=== PATIENT | female | born 1990 | race African-American/Black ===

== ENCOUNTER 2016-12-08 11:05 | Emergency (ER) | payer OTHER | END 2016-12-08 12:32 | disposition left against medical advice (07) | LOC: M ED 11:05 | DX: K08.9 Disorder of teeth and supporting structures, unspecified (principal); F41.9 Anxiety disorder, unspecified; E28.2 Polycystic ovarian syndrome; Z79.899 Other long term (current) drug therapy; Z88.6 Allergy status to analgesic agent; Z53.21 Procedure and treatment not carried out due to patient leaving prior to being seen by health care provider ==

== ENCOUNTER 2017-06-29 13:11 | Emergency (ER) | payer OTHER ==
[~2017-06-29] VITALS: Ht 170.2 cm; Wt 95.4 kg
[2017-06-29] MEDS ORDERED: FERR325T3 PO (13:17)
[2017-06-29] MEDS ORDERED: CELE20TA PO (13:17)
[2017-06-29] MEDS ORDERED: PERCOCET 5MG/325MG TAB PO ONE (15:15)
[2017-06-29 15:29] LABS: BASO % 0.5 % (0.0-1.0); EOS # 0.2 K/mm3 (0.0-0.50); EOS % 2.6 % (0.0-3.0); LARGE UNSTAINED CELL # 0.1 K/mm3 (0.0-0.4); LARGE UNSTAINED CELL % 1.6 % (0.0-4.0); LYMPH # 2.3 K/mm3 (1.5-6.5); LYMPH % 36.4 % (24.0-44.0); MEAN CORPUSCULAR HEMOGLOBIN 24.9 pg (27.0-33.0); MEAN CORPUSCULAR HGB CONC 30.4 g/dl (32.0-36.5); MEAN CORPUSCULAR VOLUME 81.9 fl (80.0-96.0); MONO # 0.2 K/mm3 (0.0-0.8); MONO % 3.9 % (0.0-5.0); NEUTROPHILS # 3.4 K/mm3 (1.8-7.7); NEUTROPHILS % 55.1 % (36.0-66.0); PLATELET COUNT, AUTOMATED 267 k/mm3 (150-450); RED CELL DISTRIBUTION WIDTH 12.5 % (11.5-14.5); WHITE BLOOD COUNT 6.1 K/mm3 (4.0-10.0)
[2017-06-29 15:54] LABS: CONTROL LINE HCG INT CTR LINE PRESENT
[2017-06-29 16:01] LABS: ANION GAP 8 MEQ/L (8-16); BLOOD UREA NITROGEN 9 MG/DL (7-18); CALCIUM LEVEL 8.1 MG/DL (8.5-10.1); CARBON DIOXIDE LEVEL 27 MEQ/L (21-32); CHLORIDE LEVEL 108 MEQ/L (98-107); GLOMERULAR FILTRATION RATE > 60.0 (>60); GLUCOSE, FASTING 80 MG/DL (70-105); POTASSIUM SERUM 3.8 MEQ/L (3.5-5.1); SODIUM LEVEL 143 MEQ/L (136-145)
--- NOTE | 2017-06-29 16:18 | REP ---
Pelvic sonography: History: Abnormal bleeding. Findings: Transabdominal and transvaginal scanning are included. Uterine dimensions are normal 8.1 x 3.8 x 5.1 cm. Endometrial echo 0.4 cm thick. No focal uterine mass seen. There is a small quantity of fluid in the cul-de-sac. Visualized bladder corrales are smooth. Normal ovaries are seen. Right ovary dimensions are 4.1 x 1.5 x 2.8 cm. Left ovary measures 3.0 x 1.8 x 3.9 cm. Normal Doppler flow is seen to both ovaries. Resistive indices are 0.61 on the right and 0.60 on the left. Impression: Normal pelvic sonography. Signed by Anjel Ngo MD 06/29/2017 04:21 P
[2017-06-29 16:33] VITALS: BP 134/78
== END 2017-06-29 16:35 | disposition home or self-care (01) ==
LOC: M ED 13:11
DX: N92.0 Excessive and frequent menstruation with regular cycle (principal); E28.2 Polycystic ovarian syndrome; D64.9 Anemia, unspecified; F41.9 Anxiety disorder, unspecified